=== PATIENT | female | born 1950 | race Caucasian/White ===

== ENCOUNTER → 2017-10-06 | Outpatient (CLI) | payer MEDICARE ==
[~2017-10-06] MED LIST: ACCUPRIL10 MG PO; ADVAIR 250/501 DISK IH; ASPIR-LOW81 MG PO; CO Q-10100 MG PO; DAYPRO600 MG PO; DYAZIDE, MA1 CAPSULE PO; EFFIENT10 MG PO; FAMOTIDINE20 MG PO; FLONASE16 G1 BOTH NARES; HYDROCHLOROTHIA25 MG PO; LITE COAT ASPI325 M1 PO; LOPRESSOR25 MG PO; METOPROLOL TART25 MG PO; NICODERM CQ1 EAC2 TD; NITROSTAT0.4 MG SL; NORCO 5/3251 TABLET PO; NORVASC10 MG PO; PLAVIX75 MG PO; PRAVACHOL80 MG PO; PRAVASTATIN SOD80 MG PO; PREVACID30 MG PO; TRIAMTERENE-HC1 EACH PO; VITAMIN E400 UNIT PO; Z QUIL
== END | disposition home or self-care (01) ==
LOC: CDC 12:26
DX: Z01.810 Encounter for preprocedural cardiovascular examination (principal); R94.31 Abnormal electrocardiogram [ECG] [EKG]
CPT/HCPCS: 93000

== ENCOUNTER 2017-11-23 21:46 | Inpatient (IN) | payer OTHER ==
[~2017-11-23] VITALS: Ht 160 cm; Wt 88.6 kg
[~2017-11-23 21:46] MED LIST changes: +ASPIR 8181 M1 PO; +EXFORGE 10/11 TABLET PO
[2017-11-24 12:29] VITALS: BP 156/72
[2017-11-24] MEDS ORDERED: NORCO 5/3251 TABLET PO (18:14)
[2017-11-24 19:26] VITALS: BP 122/60
[2017-11-24 20:00] VITALS: BP 126/65
[2017-11-24 21:00] VITALS: BP 124/52
[2017-11-25] VITALS: BP 104/50
[2017-11-25 02:00] VITALS: BP 104/44
[2017-11-25 02:54] VITALS: BP 121/58
[2017-11-25 08:30] VITALS: BP 132/60
== END 2017-11-25 10:53 | disposition home or self-care (01) | DRG 39 ==
LOC: ENRESERV 21:46 → CANRESERV 21:46 → 2SOUTH 11-24 10:54 → ENRESERV 11-24 16:50 → 4WEST 11-24 18:06 → ENRESERV 11-25 01:28 → 4WEST 11-25 02:06 → ENRESERV 11-25 02:07 → 4EAST 11-25 02:42
DX: I65.22 Occlusion and stenosis of left carotid artery (principal); F17.200 Nicotine dependence, unspecified, uncomplicated; J44.9 Chronic obstructive pulmonary disease, unspecified; I10 Essential (primary) hypertension; I25.10 Atherosclerotic heart disease of native coronary artery without angina pectoris; E78.5 Hyperlipidemia, unspecified; E78.00 Pure hypercholesterolemia, unspecified; M19.90 Unspecified osteoarthritis, unspecified site; N39.3 Stress incontinence (female) (male); Z95.5 Presence of coronary angioplasty implant and graft
CPT/HCPCS: 86850; 86900; 86901; 86920; 87641; 90686; 94640; 94799; C1768; J0131; J1100; J1170; J1644; J2250; J2405; J2710; J2720; J3010

== ENCOUNTER → 2018-03-07 | Outpatient (CLI) | payer OTHER ==
[~2018-03-07] MED LIST changes: +PANTOPRAZOLE SO20 MG PO; +RANITIDINE HCL150 MG PO; +ZETIA10 MG PO
== END | disposition home or self-care (01) ==
LOC: OPR 06:55 → EDSTATUS 08:00 → OPR 08:00
PROC: 0W9G3ZX Drainage of Peritoneal Cavity, Percutaneous Approach, Diagnostic (ICD-10-PCS; principal; 2018-03-07)
PROC: 0WBH3ZX Excision of Retroperitoneum, Percutaneous Approach, Diagnostic (ICD-10-PCS; principal; 2018-03-07)
DX: C78.6 Secondary malignant neoplasm of retroperitoneum and peritoneum (principal); R18.0 Malignant ascites; C80.1 Malignant (primary) neoplasm, unspecified; I25.10 Atherosclerotic heart disease of native coronary artery without angina pectoris; I10 Essential (primary) hypertension; Z87.891 Personal history of nicotine dependence; J44.9 Chronic obstructive pulmonary disease, unspecified; I73.9 Peripheral vascular disease, unspecified; Z79.82 Long term (current) use of aspirin; Z79.02 Long term (current) use of antithrombotics/antiplatelets
CPT/HCPCS: 49406; 77012; 88108; 88305; 88341 TC; 88342 TC; J3010

== ENCOUNTER 2018-03-24 07:02 | Inpatient (IN) | payer OTHER ==
[~2018-03-24] VITALS: Ht 160 cm; Wt 84.0 kg
[2018-03-24 07:50] LABS: HEMOGLOBIN 9.8 G/DL (11.9-15.5); MCH 25.9 PG (29.0-34.0); MCHC 32.7 G/DL (30.0-36.0); MCV 79.4 FL (83-99); PLATELET COUNT 394 K/uL (156-360); RBC DIS.WIDTH-CV 14.3 % (11.8-14.6); RBC DIS.WIDTH-SD 41.2 % (39-53); RED BLOOD COUNT 3.78 M/uL (3.80-5.20); WHITE BLOOD COUNT 8.8 K/uL (4.1-10.2)
[2018-03-24 08:03] LABS: INTER. NORMALIZED RATIO 1.1
[2018-03-24 08:05] LABS: PTT 25.7 SEC (25-37)
[2018-03-24 08:18] LABS: CHLORIDE 103 MEQ/L (99-109); CREATININE 0.8 MG/DL (0.6-1.3); GFR ESTIMATE (CALCULATED) > 59 mL/min/; GLUCOSE 106 mg/dL (70-99); POTASSIUM 4.3 MEQ/L (3.7-5.4); SODIUM 134 MEQ/L (136-147); UREA NITROGEN (BUN) 20 mg/dL (9-23)
[2018-03-24] MEDS ORDERED: CILOSTAZOL50 MG PO (10:14)
[2018-03-24] MEDS ORDERED: THERA TEARS30 ML BOTH EYES (10:15)
[2018-03-24] MEDS ORDERED: BIOTENE1000 ML MM (10:15)
[2018-03-24] MEDS ORDERED: COMPAZINE10 MG PO (10:18)
[2018-03-24] MEDS ORDERED: ZOFRAN8 MG PO (10:18)
[2018-03-24] MEDS ORDERED: CARBOPLATIN150 MG IV (10:25)
[2018-03-24] MEDS ORDERED: PACLITAXEL6 MG/1 ML IV (10:25)
[2018-03-24] MEDS ORDERED: DEXAMETHAS10 MG/1 M1 IV (10:26)
[2018-03-24] MEDS ORDERED: ALOXI0.25 MG/5 IV (10:28)
[2018-03-24 11:38] LABS: ALBUMIN 3.2 G/DL (3.2-4.8); ALKALINE PHOSPHATASE 52 IU/L (3-129); ALT (GPT) 12 IU/L (3-49); AST (GOT) 22 IU/L (2-34); DIRECT BILIRUBIN 0.1 mg/dL (0.0-0.3); TOTAL BILIRUBIN 0.3 MG/DL (0.0-1.0); TOTAL PROTEIN 6.6 G/DL (6.4-8.3)
[2018-03-24 12:22] LABS: HEMATOCRIT 28.6 % (36.0-46.0); HEMOGLOBIN 9.2 G/DL (11.9-15.5); MCV 79.4 FL (83-99)
[2018-03-24 13:51] VITALS: BP 156/70
[2018-03-24 14:49] VITALS: BP 148/70
[2018-03-24 15:53] VITALS: BP 163/70
[2018-03-24 17:05] VITALS: BP 134/71
[2018-03-24 17:56] LABS: HEMATOCRIT 30.8 % (36.0-46.0); HEMOGLOBIN 9.8 G/DL (11.9-15.5)
[2018-03-24 19:07] VITALS: BP 117/78
[2018-03-24 23:03] VITALS: BP 160/72
[2018-03-25 01:12] LABS: HEMATOCRIT 32.3 % (36.0-46.0); HEMOGLOBIN 10.6 G/DL (11.9-15.5)
[2018-03-25 03:53] VITALS: BP 135/75
[2018-03-25 06:27] LABS: HEMATOCRIT 31.6 % (36.0-46.0); HEMOGLOBIN 9.8 G/DL (11.9-15.5); MCH 25.1 PG (29.0-34.0); MCV 80.8 FL (83-99); PLATELET COUNT 319 K/uL (156-360); RBC DIS.WIDTH-CV 14.5 % (11.8-14.6); RBC DIS.WIDTH-SD 42.7 % (39-53); RED BLOOD COUNT 3.91 M/uL (3.80-5.20); WHITE BLOOD COUNT 4.9 K/uL (4.1-10.2)
[2018-03-25 06:45] VITALS: BP 117/59
[2018-03-25 07:10] LABS: ALBUMIN 2.6 G/DL (3.2-4.8); ALKALINE PHOSPHATASE 50 IU/L (3-129); ALT (GPT) 18 IU/L (3-49); CHLORIDE 109 MEQ/L (99-109); CREATININE 0.7 MG/DL (0.6-1.3); GFR ESTIMATE (CALCULATED) > 59 mL/min/; POTASSIUM 4.1 MEQ/L (3.7-5.4); SODIUM 139 MEQ/L (136-147); TOTAL BILIRUBIN 0.3 MG/DL (0.0-1.0); UREA NITROGEN (BUN) 13 mg/dL (9-23)
[2018-03-25 07:11] LABS: AST (GOT) 35 IU/L (2-34); GLUCOSE 72 mg/dL (70-99); TOTAL PROTEIN 5.4 G/DL (6.4-8.3)
[2018-03-25 11:10] VITALS: BP 137/68
[2018-03-25 14:18] LABS: HEMATOCRIT 32.9 % (36.0-46.0); HEMOGLOBIN 10.4 G/DL (11.9-15.5)
[2018-03-25 15:25] VITALS: BP 138/76
[2018-03-25 20:05] VITALS: BP 129/60
[2018-03-26 00:11] VITALS: BP 157/70
[2018-03-26 03:42] VITALS: BP 137/63
[2018-03-26 06:01] LABS: HEMATOCRIT 35.8 % (36.0-46.0); HEMOGLOBIN 11.2 G/DL (11.9-15.5); MCH 25.4 PG (29.0-34.0); MCHC 31.3 G/DL (30.0-36.0); MCV 81.2 FL (83-99); PLATELET COUNT 312 K/uL (156-360); RBC DIS.WIDTH-CV 14.6 % (11.8-14.6); RED BLOOD COUNT 4.41 M/uL (3.80-5.20); WHITE BLOOD COUNT 3.6 K/uL (4.1-10.2)
[2018-03-26 07:02] VITALS: BP 122/56
[2018-03-26 10:44] VITALS: BP 141/67
[2018-03-26 13:09] LABS: HEMOGLOBIN A1c (GLYCOHEMOGLOB) 5.7 % (Below 5.7)
== END 2018-03-26 14:54 | disposition home or self-care (01) | DRG 392 ==
LOC: EME 07:02 → EDOF 09:59 → 5EAST 09:59 → EDOF 09:59 → ENRESERV 10:02 → 5EAST 12:42
PROVIDERS: Emergency Medicine; Family Medicine; Physician Assistant Medical
PROC: 30233N1 Transfusion of Nonautologous Red Blood Cells into Peripheral Vein, Percutaneous Approach (ICD-10-PCS; principal; 2018-03-24)
DX: K52.9 Noninfective gastroenteritis and colitis, unspecified (principal); C56.9 Malignant neoplasm of unspecified ovary; C78.6 Secondary malignant neoplasm of retroperitoneum and peritoneum; K64.9 Unspecified hemorrhoids; J44.9 Chronic obstructive pulmonary disease, unspecified; E78.00 Pure hypercholesterolemia, unspecified; E78.5 Hyperlipidemia, unspecified; I10 Essential (primary) hypertension; I25.10 Atherosclerotic heart disease of native coronary artery without angina pectoris; I65.22 Occlusion and stenosis of left carotid artery; I73.9 Peripheral vascular disease, unspecified; R18.8 Other ascites; M19.90 Unspecified osteoarthritis, unspecified site; F17.210 Nicotine dependence, cigarettes, uncomplicated; Z90.711 Acquired absence of uterus with remaining cervical stump; Z95.5 Presence of coronary angioplasty implant and graft; Z95.820 Peripheral vascular angioplasty status with implants and grafts; Z88.0 Allergy status to penicillin; Z88.2 Allergy status to sulfonamides; Z88.5 Allergy status to narcotic agent; Z79.82 Long term (current) use of aspirin; Z79.02 Long term (current) use of antithrombotics/antiplatelets; Z79.899 Other long term (current) drug therapy; Z60.2 Problems related to living alone; Z98.890 Other specified postprocedural states
CPT/HCPCS: 74177; 80048; 80053; 80076; 83036; 85014; 85018; 85025; 85027; 85610; 85730; 86850; 86900; 86901; 86920; 87624; 94640; 94640 76; 96375; 96413; 96415; 96417; 99281; 99285; G0463 25; J1100; J2405; J2469; J7030; J7050; J7060; J9045; J9267; P9016